=== PATIENT | male | born 1945 | race Caucasian/White ===

== ENCOUNTER → 2020-10-09 11:46 | Outpatient (BNVA) | payer OTHER, SELFPAY | PROVIDERS: PCP Internal Medicine; Referring Provider Internal Medicine; Visit Provider Specialist | DX: M16.0 Bilateral primary osteoarthritis of hip (principal); M25.552 Pain in left hip | CPT/HCPCS: 73502 ==

== ENCOUNTER 2020-10-30 10:30 | Outpatient (CLI) | payer OTHER, SELFPAY ==
--- NOTE | 2020-10-30 10:39 | MR_ITS ---
WS: [id number] MRI PELVIS without CONTRAST. COMPARISON: Radiographs 10/09/2020 Multiplanar, multisequence imaging is performed without contrast. Moderate narrowing of the hip joints bilaterally. There is not a lot of edema associated with the niall nt space narrowing. Very mild acetabular osteophytic ridging. No erosions. No subluxation. There is m ild diffuse loss of cartilage with joint space narrowing. No joint effusion. There is a vague area of low signal on the T1 and increased signal on the T2 sequences in the proxima l femoral diaphysis measuring 9 x 19 mm. There is no cortical destruction. The margins of this lesion are very poorly visualized. There is no adjacent edema or cortical reaction. Radiographically this i s poorly visualized. There may be a similar lesion involving the proximal RIGHT diaphysis suggesting this is benign. There is a tiny cystic area associated with the LEFT femoral lesion. Moderate-sized bilateral hydroceles. No additional abnormalities. MR/MR pelvis wo con* [id number] IMPRESSION: 1. Moderate bilateral narrowing of the hip joint with loss of cartilage. No si gnificant edema or erosions associated with the hip joint narrowing. 2. Vague area of variable signal intensity in the proximal LEFT diaphysis with a tiny cystic component. There may be a similar area without the cystic compon ent in the proximal RIGHT femur. Favor this is probably benign. Due to the asym metry consider follow-up bone scan imaging. Differential includes metastatic si te, enchondroma or possible low-grade infection.
== END 2020-10-30 10:31 | disposition home or self-care (01) ==
LOC: RADWPI 10:35
PROVIDERS: PCP Internal Medicine; Visit Provider Specialist
DX: M16.0 Bilateral primary osteoarthritis of hip (principal)
CPT/HCPCS: 72195

== ENCOUNTER 2020-12-05 08:57 | Outpatient (CLI) | payer MEDICARE, SELFPAY ==
--- NOTE | 2020-12-05 09:05 | NM_ITS ---
WS: [id number] THREE-PHASE BONE SCAN HISTORY: M16.0 - Bilateral primary osteoarthritis of hip COMPARISON: MRI pelvis 10/30/2020 and LEFT hip radiograph 10/09/2020. Patient is is injected with 24.3 mCi Tc99m HDP intravenously. Immediate angiographic phase imaging is performed over the area of concern. Static blood pool imaging also performed. Two-hour whole-body sc intigrams performed in anterior and posterior projections. Additional large field of view imaging sub mitted as necessary. Angiographic phase and blood pool phase imaging are normal. There is no evidence for osteomyelitis. N ormal soft tissue uptake. There is no area of increased uptake or photopenic defect involving the hips. There is minimal increa sed uptake on the anterior image at the acetabulum. No abnormality associated with the proximal LEFT femur lesion described on recent pelvic MRI. Mild AC joint arthritis. Normal soft tissue uptake and normal renal uptake. Mild increased uptake wit hin the ankles and mid feet bilaterally from osteoarthritis. NM/NM bone 3 phase [id number] IMPRESSION: 1. Very minimal increased uptake at the hip joints bilaterally. 2. No uptake in the proximal LEFT femur lesion as described by MRI. 3. Mild degenerative changes at the ankles, mid feet and AC joints.
== END 2020-12-05 08:58 | disposition home or self-care (01) ==
PROVIDERS: PCP Internal Medicine; Visit Provider Specialist
DX: M16.0 Bilateral primary osteoarthritis of hip (principal)
CPT/HCPCS: 78315; A9561

== ENCOUNTER 2021-07-24 09:43 | Outpatient (CLI) | payer MEDICARE, SELFPAY ==
--- NOTE | 2021-07-24 10:15 | USCV_ITS ---
Shorty Ulices Age: 76 Gender: M : 1945 Exam Date: 07/24/2021 09:55 Ordering Phys: Kelvin Thorpe MD ([email or web address]) Technologist: MANJU Exam Location: [facility] [place] Indication: Dyspnea BP: 104 / 54 HR: 67 Rhythm: Sinus Technical Quality: Technically difficult study MEASUREMENTS (Male / Female) Normal Values 2D ECHO LV Diastolic Diameter PLAX 3.3 cm 4.2 - 5.9 / 3.9 - 5.3 cm LV Systolic Diameter PLAX 2.5 cm IVS Diastolic Thickness 1.2 cm 0.6 - 1.0 / 0.6 - 0.9 cm IVS Systolic Thickness 1.4 cm LVPW Diastolic Thickness 1.0 cm 0.6 - 1.0 / 0.6 - 0.9 cm LVPW Systolic Thickness 1.2 cm RV Chamber Size 3.4 cm LVOT Diameter 2.0 cm LV Ejection Fraction 2D Teich 49.0 % LV Ejection Fraction MOD 2C 58.1 % LV Ejection Fraction 2C AL 57.2 % LA Diameter 2.5 cm LA Width 3.4 cm LA Height 4.3 cm RA Width 4.3 cm RA Height 3.4 cm Aorta at Sinotubular Diameter 2.0 cm DOPPLER AV Peak Velocity 99.0 cm/s LVOT Peak Velocity 80.0 cm/s AV Area Cont Eq vti 2.4 cm squared AV Area Cont Eq pk 2.5 cm squared MV Area PHT 4.5 cm squared Mitral E to A Ratio 1.1 MV E' Velocity 43.0 cm/s Mitral E to MV E' Ratio 8.4 Mitral E to LV E' Lateral Ratio 7.3 Mitral E to LV E' Septal Ratio 9.9 TR Peak Velocity 198.0 cm/s TR Peak Gradient 15.7 mmHg TV Peak E Velocity 34.0 cm/s PV Peak Velocity 52.0 cm/s RV Acceleration Time 0.1 s RV Ejection Time 0.3 s RV AcT/ET 0.3 FINDINGS Left Ventricle Normal left ventricular size and systolic function, EF 55 %. No gross wall motion abnormalities. Technically difficult study because of the poor ultrasonic window Pt could not lay on left side. Right Ventricle The right ventricle is normal in size and function. Right Atrium The right atrium is normal in size. Left Atrium The left atrium is normal in size. Mitral Valve Trace mitral valve regurgitation. Aortic Valve Thickened aortic valve. Tricuspid Valve No gross abnormalities noted Pulmonic Valve Pulmonic valve not well visualized. Pericardium Normal pericardium without effusion. Aorta Normal ascending aorta dimension. CONCLUSIONS Normal left ventricular size and systolic function, EF 55 %. No gross wall motion abnormalities. Technically difficult study because of the poor ultrasonic window. Thickened aortic valve. Trace mitral valve regurgitation. There is no pericardial effusion. There are no intracardiac masses. Technically difficult study because of the poor ultrasonic window. Dr Kelvin Thorpe MD FAC (Electronically Signed) Final Date: 24 July 2021 19:16 S
== END 2021-07-24 09:44 | disposition home or self-care (01) ==
LOC: RAD 09:46
PROVIDERS: Visit Provider Internal Medicine Cardiovascular Disease
DX: R06.00 Dyspnea, unspecified (principal); I25.10 Atherosclerotic heart disease of native coronary artery without angina pectoris; I08.0 Rheumatic disorders of both mitral and aortic valves
CPT/HCPCS: 93306

== ENCOUNTER 2021-08-08 08:41 | Outpatient (CLI) | payer MEDICARE, SELFPAY ==
--- NOTE | 2021-08-08 10:09 | ECG_ITS ---
[facility] Test Date: 2021-08-08 Pat Name: Ulices Oro Department: Room: Gender: Male Rn [facility]: Silvina Michelle : 1945 Requested By: Kelvin Thorpe Order Number: [id number] Bradly MD: Kelvin Thorpe M.D. Interpretive Statements NAME OF STUDY: LEXISCAN SESTAMIBI STRESS TEST INDICATION: Cp/ashd, PROCEDURE: At the baseline, the EKG revealed possible normal sinus rhythm with low voltage complexes throughout. Because of the baseline artifact, somewhat difficult to discern the rhythm. The baseline blood pressure was 150/80 mm Hg with a heart rate of 66 beats/min. Lexiscan was infused over a period of 20 seconds. A total of 0.4 milligrams of Lexiscan was infused. The stress phase was continued for a total of 5 minutes. Heart rate at the end of the stress phase was 78 with a blood pressure 146/75. The EKG at the peak infusion revealed no significant changes. Sestamibi was injected 20 seconds after the Lexiscan infusion. Blood pressure at the end of the recovery phase was 131/92 with a heart rate of 78 per minute. CONCLUSION: 1. No significant EKG changes with the LexiScan infusion 2. No LexiScan induced chest pain or cardiac arrhythmia 3. Normal blood pressure and heart rate response 4. Sestamibi/sestamibi perfusion scan pending; see separate report. Electronically Signed On 08-10-2021 11:41:36 INSIDE [employer] LAT[employer] OPERATOR by Kelvin Thorpe M.D. [id number]
--- NOTE | 2021-08-08 10:10 | NMCV_ITS ---
NM josé perf SPECT r/s* [id number] Ulices Oro Age: 76 Gender: M : 1945 Exam Date: 08/08/2021 11:14 Ordering Phys: Kelvin Thorpe MD ([email or web address]) Technologist: CATALINA Butts Exam Location: [facility] [address] Indications: CHEST PAIN STRESS TEST [facility] IMAGE PROTOCOL Rest/Stress 1 Lexiscan Day Radiopharmaceutical Dose (mCi) Administration Site Administered by Rest: Tc-99m 10.7 IV CATALINA Butts Sestamibi Stress:Tc-99m 33.0 IV CATALINA Butts Sestamibi Rest: 08-Aug-2021 60 Discovery 630 Stress: 08-Aug-2021 30 Discovery 630 0.4mg Lexiscan. Supine position only as patient was unable to lay prone. SPECT RESULTS Technical Quality: Excellent Raw Data Analysis: Normal Image Corrections: No attenuation or motion correction applied Summed Stress Score: 4 Summed Rest Score: 6 Summed Difference Score: 0 PERFUSION FINDINGS Small to moderate area of moderately decreased tracer uptake in the mid and apical inferior, mid inferolateral and apical lateral regions. No significant reversibility was noted in this region. FUNCTIONAL RESULTS (calculated via Gated SPECT) Stress Image LV EF (%): 68 Stress EDV (mL):95 TID: 1.16 Stress ESV (mL):30 FUNCTIONAL FINDINGS: Segmental wall motion analysis revealing no gross wall motion abnormalities. IMPRESSIONS 1. Myocardial perfusion imaging revealing small to moderate area of persistent decreased tracer uptake in the inferior and inferolateral regions suggesting myocardial scarring versus a transient artifact. 2. Normal LV ejection fraction of 68%. 3. LV wall motion analysis revealing no gross wall motion abnormalities. 4. Normal LV volume. 5. Elevated transient ischemic dilatation ratio 1.16 may suggest endocardial ischemia. However the positive predictive value of this finding is limited. Clinical correlation is recommended. No similar previous studies are available for comparison Dr Kelvin Thorpe MD FACC (Electronically Signed) Final Date: 09 August 2021 20:04 S
[2021-08-08 10:46] VITALS: BMI 30.1
[2021-08-08] MEDS: regadenoson 0.4 Mg/5 ml Syringe IVP (12:14)
[2021-08-08 12:20] VITALS: BP 130/92; PULSE 80
== END 2021-08-08 08:42 | disposition home or self-care (01) ==
LOC: RAD 09:44 → CDL 10:30
PROVIDERS: PCP Internal Medicine; Visit Provider Internal Medicine Cardiovascular Disease
DX: R07.9 Chest pain, unspecified (principal); I25.10 Atherosclerotic heart disease of native coronary artery without angina pectoris
CPT/HCPCS: 78452; 93017; A9500; J2785

== ENCOUNTER → 2021-10-23 15:28 | Outpatient (BNVA) | payer MEDICARE, SELFPAY | PROVIDERS: PCP Internal Medicine; Visit Provider Internal Medicine Cardiovascular Disease | DX: E78.2 Mixed hyperlipidemia (principal); I25.10 Atherosclerotic heart disease of native coronary artery without angina pectoris; Z95.1 Presence of aortocoronary bypass graft; I10 Essential (primary) hypertension | CPT/HCPCS: 99213; 99214 ==

== ENCOUNTER → 2022-04-30 13:32 | Outpatient (BNVA) | payer MEDICARE, SELFPAY | PROVIDERS: PCP Internal Medicine; Visit Provider Internal Medicine Cardiovascular Disease | DX: I25.10 Atherosclerotic heart disease of native coronary artery without angina pectoris (principal); E78.2 Mixed hyperlipidemia; I10 Essential (primary) hypertension; E03.9 Hypothyroidism, unspecified; Z95.1 Presence of aortocoronary bypass graft; Z87.891 Personal history of nicotine dependence | CPT/HCPCS: 99214 ==

== ENCOUNTER → 2023-06-12 15:48 | Outpatient (BNVA) | payer MEDICARE, SELFPAY | PROVIDERS: PCP Internal Medicine; Visit Provider Internal Medicine Cardiovascular Disease | DX: R06.02 Shortness of breath (principal); I10 Essential (primary) hypertension; E03.9 Hypothyroidism, unspecified; E78.2 Mixed hyperlipidemia | CPT/HCPCS: 36415; 80048; 83880; 99214 ==

== ENCOUNTER → 2023-11-04 10:42 | Outpatient (BNVA) | payer MEDICARE, SELFPAY | PROVIDERS: PCP Internal Medicine; Visit Provider Internal Medicine Cardiovascular Disease | DX: I25.10 Atherosclerotic heart disease of native coronary artery without angina pectoris (principal); E78.2 Mixed hyperlipidemia; I10 Essential (primary) hypertension; R05.8 Other specified cough; Z87.891 Personal history of nicotine dependence | CPT/HCPCS: 99214 ==

== ENCOUNTER 2024-04-30 08:39 | Outpatient (CLI) | payer MEDICARE, SELFPAY ==
--- NOTE | 2024-04-30 08:45 | CTR_ITS ---
PROCEDURE INFORMATION: Exam: CT Maxillofacial Without Contrast, Sinus Exam date and time: 04/30/2024 8:50 AM Age: 79 years old Clinical indication: Other: Cough; Additional info: Chronic cough TECHNIQUE: Imaging protocol: CT Maxillofacial without contrast. Focus on the sinuses. Radiation optimization: All CT scans at this facility use at least one of these dose optimization techniques: automated exposure control; mA and/or kV adjustment per patient size (includes targeted exams where dose is matched to clinical indication); or iterative reconstruction. COMPARISON: No relevant prior studies available. RADIATION DOSE METRICS: Total DLP (mGy-cm): 421.68 FINDINGS: Sinuses: Mucosal thickening in the bilateral frontal, ethmoid air cells (anterior cells greater than posterior), and less prominently sphenoid and maxillary sinuses. No air-fluid levels. Nasal cavity: Conventional anatomy of the sinuses. Mildly hypoplastic left middle turbinate. Mild leftward deviation and moderate leftward spurring of the left bony nasal septum. Orbital cavities: Prosthetic right globe with mild enophthalmos. Left orbit is unremarkable. Bones: Unremarkable. Soft tissues: No soft tissue abnormality. Teeth: All maxillary teeth are absent. Brain: No acute abnormality in the imaged brain. Moderate brain parenchymal atrophy with widening of the ventricles and sulci. CT/CT sinus wo con* [id number] IMPRESSION: Mucosal thickening in the paranasal sinuses (greatest in the anterior ethmoid air cells). Mastoid air cells are clear.
== END 2024-04-30 08:40 | disposition home or self-care (01) ==
LOC: RAD 08:40
PROVIDERS: PCP Internal Medicine; Visit Provider Specialist
DX: R05.3 Chronic cough (principal); J32.9 Chronic sinusitis, unspecified
CPT/HCPCS: 70486

== ENCOUNTER → 2024-05-05 11:56 | Outpatient (BNVA) | payer MEDICARE, SELFPAY | PROVIDERS: PCP Internal Medicine; Visit Provider Internal Medicine Cardiovascular Disease | DX: R94.31 Abnormal electrocardiogram [ECG] [EKG] (principal); Q24.8 Other specified congenital malformations of heart; R07.9 Chest pain, unspecified; R06.02 Shortness of breath | CPT/HCPCS: 36415; 80048; 83880; 93005; 99214 ==

== ENCOUNTER → 2024-11-03 10:30 | Outpatient (BNVA) | payer MEDICARE, SELFPAY | PROVIDERS: PCP Family Medicine; Visit Provider Nurse Practitioner Family | DX: I11.0 Hypertensive heart disease with heart failure (principal); I50.9 Heart failure, unspecified; E78.2 Mixed hyperlipidemia; J44.9 Chronic obstructive pulmonary disease, unspecified; Z95.1 Presence of aortocoronary bypass graft; Z87.891 Personal history of nicotine dependence | CPT/HCPCS: 99214 ==

== ENCOUNTER → 2025-05-20 12:20 | Outpatient (BNVA) | payer MEDICARE, SELFPAY | PROVIDERS: PCP Family Medicine; Visit Provider Internal Medicine Cardiovascular Disease | DX: R06.02 Shortness of breath (principal) | CPT/HCPCS: 36415; 80048; 83880 ==